=== PATIENT | female | born 1975 | race Hispanic/Latino ===

== ENCOUNTER 2017-07-23 18:37 | Emergency (ER) | payer BC ==
[~2017-07-23] VITALS: Ht 162.6 cm; Wt 62.6 kg
== END 2017-07-23 19:41 | disposition home or self-care (01) ==
LOC: FSED 18:37
DX: R30.0 Dysuria (principal); N30.90 Cystitis, unspecified without hematuria
CPT/HCPCS: 81003; 81025; 87086; 99282